=== PATIENT | male | born 1995 | race Caucasian/White ===

== ENCOUNTER 2017-05-31 23:18 | Emergency (ER) | payer BC ==
[2017-05-31] MEDS ORDERED: Haloperidol INJ IV/IM* 5 MG/ML AMP IM ONE (23:29)
[2017-05-31] MEDS ORDERED: diPHENhydraMINE IV* 50 MG/ML 1 ml VIAL (BENADRYL) IM ONE (23:29)
[2017-05-31] MEDS ORDERED: LORazepam INJ* 2 MG/ML 1 ML VIAL IM ONE (23:29)
[2017-05-31] MEDS ORDERED: diPHENhydraMINE IV* 50 MG/ML 1 ml VIAL (BENADRYL) ONE (23:35)
[2017-05-31] MEDS ORDERED: LORazepam INJ* 2 MG/ML 1 ML VIAL ONE (23:35)
[2017-05-31] MEDS ORDERED: Haloperidol INJ IV/IM* 5 MG/ML AMP ONE (23:35)
[2017-06-01 00:10] LABS: Hematocrit 46 % (42-52); Hemoglobin 15.4 g/dl (14.0-18.0); Mean Corpuscular HGB Conc 33 g/dl (31-36); Mean Corpuscular Hemoglobin 32 pg (27-31); Mean Corpuscular Volume 96 fL (80-94); Mean Platelet Volume 8.7 um3 (7.4-10.4); Platelet Count 333 10^3/ul (150-450); Red Cell Distribution Width 14 % (10.5-15); White Blood Count 13.8 10^3/ul (3.5-10.8)
[2017-06-01 00:27] LABS: EGFR Non-African American 78.7 (>60)
[2017-06-01 00:28] LABS: ABS Basophils 0.1 10^3/ul (0-0.2); ABS Eosinophils 0.2 10^3/ul (0-0.6); ABS Monocytes 1.2 10^3/ul (0-0.8); ABS Neutrophils 8.5 10^3/ul (1.5-7.7); ABS Nucleated RBC 0 10^3/ul; Eosinophil % 1.1 % (0-6); Lymphocyte % 28.6 % (25-47); Nucleated Red Blood Cells % 0.1
--- NOTE | 2017-06-01 07:05 | ED ---
Joseph Hess Tecjoon, scribed for Mauro Majano MD on 06/01/17 at 0351 . Substance Abuse/Use - HPI Summary HPI Summary: This patient is a 22 year old male brought to [facility] [place] with a chief complaint of alcohol intoxication. Patient is non-contributory and refuses to answer any questions. Patient was restrained and sedated. HPI Limited due to Level 5 Caveat - History Of Current Complaint Chief Complaint: EDSubstanceAbuse Stated Complaint: 2209/941 Time Seen by Provider: 05/31/17 23:27 Hx Obtained From: EMS Hx From Patient Unobtainable Due To: Other - non-contributory Ingestion History: Type/Name Of Drug - EtOH Overdose Characteristics: Oral Severity Currently: Moderate Character: Angry, Frustrated Aggravating Factor(s): Nothing Alleviating Factor(s): Nothing - Allergies/Home Medications Allergies/Adverse Reactions: Allergies Allergy/AdvReac Type Severity Reaction Status Date / Time No Known Allergies Allergy Verified 05/31/17 23:24 PMH/Surg Hx/FS Hx/Imm Hx Previously Healthy: No - PMHx Limited due to Level 5 Caveat Musculoskeletal History: Denies: Hx Rheumatoid Arthritis, Hx Osteoporosis Opthamlomology History: Denies: Hx Legally Blind EENT History: Denies: Hx Deafness Infectious Disease History: No Infectious Disease History: Denies: Traveled Outside the [place] in Last 30 Days - Family History Known Family History: Positive: Hypertension - Social History Alcohol Use: Occasionally Hx Substance Use: No Substance Use Type: Reports: None Substance Use Comment - Amount & Last Used: unknown Hx Tobacco Use: Yes Smoking Status (MU): Former Smoker Review of Systems Negative: Fever All Other Systems Reviewed And Are Negative: No - Comments Additional Review of Systems Comments: ROS Limited due to Level 5 Caveat: Patient non-compliance Physical Exam - Summary Physical Exam Summary: HEAD AND FACE: No signs of trauma. No ecchymosis, hematomas or skull depressions. No sinus tenderness. CHEST: Symmetric, no tenderness at palpation LUNGS: Clear to auscultation bilaterally. No wheezing or crackles. CVS: Regular rate and rhythm, S1 and S2 present, no murmurs or gallops appreciated. SKIN: Dry and warm Due to patient agitation and non-compliance, patient was sedated. PE Limited due to Level 5 Caveat Triage Information Reviewed: Yes Vital Signs On Initial Exam: Initial Vitals Temp Pulse Resp BP Pulse Ox 97.7 F 95 18 153/111 96 05/31/17 23:23 05/31/17 23:23 05/31/17 23:23 05/31/17 23:23 05/31/17 23:23 Vital Signs Reviewed: Yes Completion Of Physical Exam Limited Due To: Level 5, Other - non-compliance Diagnostics - Vital Signs Vital Signs Temp Pulse Resp BP Pulse Ox 06/01/17 02:00 65 19 101/61 96 06/01/17 01:30 62 19 106/58 96 06/01/17 01:00 66 20 103/53 96 06/01/17 00:30 70 22 111/59 90 06/01/17 00:21 64 21 92 06/01/17 00:20 110/63 05/31/17 23:23 97.7 F 95 18 153/111 96 - Laboratory Lab Results: Lab Results 05/31/17 05/31/17 Range/Units 23:56 23:56 WBC 13.8 H (3.5-10.8) 10^3/ul RBC 4.80 (4.0-5.4) 10^6/ul Hgb 15.4 (14.0-18.0) g/dl Hct 46 (42-52) % MCV 96 H (80-94) fL MCH 32 H (27-31) pg MCHC 33 (31-36) g/dl RDW 14 (10.5-15) % Plt Count 333 (150-450) 10^3/ul MPV 8.7 (7.4-10.4) um3 Neut % (Auto) 60.8 (38-83) % Lymph % (Auto) 28.6 (25-47) % [place] % (Auto) 8.5 H (0-7) % Eos % (Auto) 1.1 (0-6) % Baso % (Auto) 1.0 (0-2) % Absolute Neuts (auto) 8.5 H (1.5-7.7) 10^3/ul Absolute Lymphs (auto) 4.0 (1.0-4.8) 10^3/ul Absolute Monos (auto) 1.2 H (0-0.8) 10^3/ul Absolute Eos (auto) 0.2 (0-0.6) 10^3/ul Absolute Basos (auto) 0.1 (0-0.2) 10^3/ul Absolute Nucleated RBC 0 10^3/ul Nucleated RBC % 0.1 Sodium 138 L (139-145) mmol/L Potassium 3.8 (3.5-5.0) mmol/L Chloride 106 (101-111) mmol/L Carbon Dioxide 18 L (22-32) mmol/L Anion Gap 14 H (2-11) mmol/L BUN 10 (6-24) mg/dL Creatinine 1.16 (0.67-1.17) mg/dL Est GFR ( Amer) 101.3 (>60) Est GFR (Non-Af Amer) 78.7 (>60) BUN/Creatinine Ratio 8.6 (8-20) Glucose 100 (70-100) mg/dL Calcium 8.9 (8.6-10.3) mg/dL Total Bilirubin 0.30 (0.2-1.0) mg/dL AST 96 H (13-39) U/L ALT 191 H (7-52) U/L Alkaline Phosphatase 84 (34-104) U/L Total Creatine Kinase 150 (10-223) U/L Total Protein 7.3 (6.4-8.9) g/dL Albumin 4.3 (3.2-5.2) g/dL Globulin 3.0 (2-4) g/dL Albumin/Globulin Ratio 1.4 (1-3) TSH 3.79 (0.34-5.60) mcIU/mL Salicylates < 2.50 (<30) mg/dL Acetaminophen < 15 mcg/mL Serum Alcohol 282 H (<10) mg/dL Result Diagrams: 05/31/17 23:56 05/31/17 23:56 Lab Statement: Any lab studies that have been ordered have been reviewed, and results considered in the medical decision making process. Course/Dx - Course Course Of Treatment: This patient is a 22 year old male brought to [facility] by police with a chief complaint of alcohol intoxication. Patient is non- contributory and refuses to answer any questions. Patient was restrained and sedated. Patient will be diagnosed with alcohol intoxication. Patient will be signed out at end of shift to Dr. Rosen, pending MHE. The patient is agreeable with this plan. - Diagnoses Provider Diagnoses: Alcohol intoxication Discharge - Sign-Out/Discharge Documenting (check all that apply): Sign-Out Patient Signing out patient TO: Jonathan Rosen - Discharge Plan Condition: Stable Discharge Disposition Comment: signed out to Dr. Rosen at end of shift. Referrals: Lg Galeano MD [Primary Care Provider] - The documentation as recorded by the Joseph elaine Tecjoon accurately reflects the service I personally performed and the decisions made by me, Mauro Majano MD.
[2017-06-01 12:01] LABS: Urine Appearance Cloudy; Urine Blood Negative (Negative); Urine Color Yellow; Urine Ketones Negative (Negative); Urine Protein Negative (Negative); Urine Specific Gravity 1.016 (1.010-1.030); Urine Urobilinogen Negative (Negative)
[2017-06-01 19:38] VITALS: BP 111/60
--- NOTE | 2017-06-01 20:36 | ED ---
Joseph Hess Tecjoon, scribed for Mauro Majano MD on 06/01/17 at 2030 . Progress - Consult/PCP Time Called: 10:56 Course/Dx - Course Course Of Treatment: This patient is a 22 year old male brought to [facility] by police with a chief complaint of alcohol intoxication. Patient was signed out from Dr. Rosen at end of shift, awaiting transfer to [place]. At 2028, EMS arrived and patient will be transferred to [place]. - Diagnoses Provider Diagnoses: Substance abuse Discharge - Sign-Out/Discharge Documenting (check all that apply): Receiving Sign-Out Receiving patient FROM: Jonathan Rosen - Discharge Plan Condition: Stable Disposition: ADMITTED TO OTHER HOSPITAL Discharge Disposition Comment: Transferred to [facility] Referrals: Lg Galeano MD [Primary Care Provider] - The documentation as recorded by the Joseph elaine Tecjoon accurately reflects the service I personally performed and the decisions made by Gretel mccoy Abdul, MD.
--- NOTE | 2017-06-03 12:58 | ED ---
I, Katelyn Villanueva, scribed for Jonathan Rosen MD on 06/01/17 at 1006 . Progress - EKG/XRAY/CT EKG: NSR - At 13:12, 70 BPM, no ST elevation, J point elevation, nml axis Re-Evaluation - Re-Evaluation First Eval Re-Evaluation Time: 10:05 Change: Unchanged - Alert and oriented x3. Pending MHE. Course/Dx - Course Course Of Treatment: The pt is a sign out from Dr. Majano at shift change pending MHE. The pt is alert and oriented x3. He is sober and his MHE is complete. ED physician wants to admit the pt however since there is no room in the [facility] psych unit, the pt will be transferred to [place]. Dr. Tompkins from [facility] accepts the patient for admission. - Diagnoses Provider Diagnoses: Alcohol intoxication Discharge - Sign-Out/Discharge Documenting (check all that apply): Discharge, Sign-Out Patient Signing out patient TO: Mauro Majano - Transfer to [place]. - Discharge Plan Condition: Stable Disposition: PSYCHIATRIC FACILITY-OTHER Referrals: Lg Galeano MD [Primary Care Provider] - The documentation as recorded by the Rich elaine Stephanie accurately reflects the service I personally performed and the decisions made by , Jonathan Rosen MD.
== END 2017-06-01 20:37 | disposition short-term general hospital (02) ==
LOC: ED 23:18
DX: F10.129 Alcohol abuse with intoxication, unspecified (principal); Y90.8 Blood alcohol level of 240 mg/100 ml or more
CPT/HCPCS: 36415; 80053; 80307; 80320; 80329; 81003; 82550; 84443; 85025; 93005; 96372; 99285; G0480; J1200; J1630; J2060

== ENCOUNTER 2017-06-30 11:43 | Emergency (ER) | payer BC ==
[~2017-06-30 11:43] MED LIST: Haloperidol INJ IV/IM* 5 MG/ML AMP ONE; LORazepam INJ* 2 MG/ML 1 ML VIAL ONE; diPHENhydraMINE IV* 50 MG/ML 1 ml VIAL (BENADRYL) ONE
[2017-06-30 12:08] LABS: ABS Basophils 0.1 10^3/ul (0-0.2); ABS Eosinophils 0 10^3/ul (0-0.6); ABS Lymphocytes 1.5 10^3/ul (1.0-4.8); ABS Monocytes 0.6 10^3/ul (0-0.8); ABS Neutrophils 5.1 10^3/ul (1.5-7.7); ABS Nucleated RBC 0 10^3/ul; Eosinophil % 0.5 % (0-6); Hematocrit 41 % (42-52); Mean Corpuscular HGB Conc 34 g/dl (31-36); Mean Corpuscular Hemoglobin 32 pg (27-31); Mean Corpuscular Volume 94 fL (80-94); Nucleated Red Blood Cells % 0; Platelet Count 236 10^3/ul (150-450); Red Blood Count 4.36 10^6/ul (4.0-5.4); Red Cell Distribution Width 14 % (10.5-15); White Blood Count 7.4 10^3/ul (3.5-10.8)
[2017-06-30 12:23] LABS: EGFR Non-African American 119.2 (>60)
[2017-06-30 12:41] LABS: Urine Appearance Clear; Urine Blood Negative (Negative); Urine Color Straw; Urine Ketones Negative (Negative); Urine Protein Negative (Negative); Urine Specific Gravity 1.003 (1.010-1.030); Urine Urobilinogen Negative (Negative)
--- NOTE | 2017-06-30 21:24 | ED ---
Roscoe Hess Elizabeth, scribed for Constantin Guillory MD on 06/30/17 at 1210 . Psychiatric Complaint - HPI Summary HPI Summary: This patient is a 22 year old M presenting to [facility] via EMS accompanied by [place] [employer] with a chief complaint of alcohol intoxication and combativeness. Police report that they were called to the scene after the patient told someone he was going to jump off the parking garage. Upon arrival, the police report that the patient admitted to making that remark, said he was not going to do it , and then became combative. Patient is uncooperative and voluble. Patient was restrained and sedated. - History Of Current Complaint Chief Complaint: EDMentalHealth Time Seen by Provider: 06/30/17 11:45 Hx Obtained From: Other: - [place] [employer] Hx From Patient Unobtainable Due To: Other - uncooperative Onset/Duration: Still Present - still combative Severity Initially: Mild Severity Currently: Mild Character: Anxious, Angry Aggravating Factor(s): Alcohol Use Associated Signs And Symptoms: Positive: Hostile Has Suicidal: Denies: Thoughts, With A Plan - Allergies/Home Medications Allergies/Adverse Reactions: Allergies Allergy/AdvReac Type Severity Reaction Status Date / Time No Known Allergies Allergy Verified 06/30/17 12:13 Home Medications: Home Medications NK [No Home Medications Reported] 06/30/17 [History Confirmed 06/30/17] PMH/Surg Hx/FS Hx/Imm Hx Musculoskeletal History: Denies: Hx Rheumatoid Arthritis, Hx Osteoporosis Sensory History: Denies: Hx Legally Blind, Hx Deafness Opthamlomology History: Denies: Hx Legally Blind Psychiatric History: Reports: Hx of Violent Episodes Against Others Denies: Hx Eating Disorder Infectious Disease History: No Infectious Disease History: Denies: Traveled Outside the [place] in Last 30 Days - Family History Known Family History: Positive: Hypertension - Social History Alcohol Use: Occasionally Hx Substance Use: No Substance Use Type: Reports: None Substance Use Comment - Amount & Last Used: unknown Hx Tobacco Use: Yes Smoking Status (MU): Former Smoker Review of Systems Negative: Epistaxis Negative: Shortness Of Breath, Cough Negative: Vomiting All Other Systems Reviewed And Are Negative: Yes Physical Exam - Summary Physical Exam Summary: Appearance: The patient is well-nourished in no acute distress and in no acute pain. Skin: The skin is warm and dry and skin color reflects adequate perfusion. HEENT: The head is normocephalic and atraumatic. The pupils are equal and reactive. The conjunctivae are clear and without drainage. Nares are patent and without drainage. Mouth reveals moist mucous membranes and the throat is without erythema and exudate. The external ears are intact. The ear canals are patent and without drainage. The tympanic membranes are intact. Neck: the neck is supple with full range of motion and non-tender. There are no carotid bruits. There is no neck vein distension. Respiratory: Chest is non-tender. Lungs are clear to auscultation and breath sounds are symmetrical and equal. Cardiovascular: Heart is regular rate and rhythm. There is no murmur or rub auscultated. There is no peripheral edema and pulses are symmetrical and equal. Abdomen: The abdomen is soft and non-tender. There are normal bowel sounds heard in all four quadrants and there is no organomegaly palpated. Musculoskeletal: There is no back tenderness noted. Extremities are non-tender with full range of motion. There is good capillary refill. There is no peripheral edema or calf tenderness elicited. Neurological: Patient is alert and oriented to person, place and time. The patient has symmetrical motor strength in all four extremities. Cranial nerves are grossly intact. Deep tendon reflexes are symmetrical and equal in all four extremities. Psychiatric: The patient has an appropriate affect and does not exhibit any anxiety or depression. Triage Information Reviewed: Yes Vital Signs On Initial Exam: Initial Vitals Temp Pulse Resp BP Pulse Ox 99.3 F 121 24 168/98 98 06/30/17 11:50 06/30/17 11:50 06/30/17 11:50 06/30/17 11:50 06/30/17 11:50 Vital Signs Reviewed: Yes Diagnostics - Vital Signs Vital Signs Temp Pulse Resp BP Pulse Ox 06/30/17 11:50 99.3 F 121 24 168/98 98 - Laboratory Lab Results: Lab Results 06/30/17 06/30/17 06/30/17 Range/Units 11:58 11:58 12:31 WBC 7.4 (3.5-10.8) 10^3/ul RBC 4.36 (4.0-5.4) 10^6/ul Hgb 14.0 (14.0-18.0) g/dl Hct 41 L (42-52) % MCV 94 (80-94) fL MCH 32 H (27-31) pg MCHC 34 (31-36) g/dl RDW 14 (10.5-15) % Plt Count 236 (150-450) 10^3/ul MPV 8.0 (7.4-10.4) um3 Neut % (Auto) 69.8 (38-83) % Lymph % (Auto) 21.0 L (25-47) % [place] % (Auto) 7.9 H (0-7) % Eos % (Auto) 0.5 (0-6) % Baso % (Auto) 0.8 (0-2) % Absolute Neuts (auto) 5.1 (1.5-7.7) 10^3/ul Absolute Lymphs (auto) 1.5 (1.0-4.8) 10^3/ul Absolute Monos (auto) 0.6 (0-0.8) 10^3/ul Absolute Eos (auto) 0 (0-0.6) 10^3/ul Absolute Basos (auto) 0.1 (0-0.2) 10^3/ul Absolute Nucleated RBC 0 10^3/ul Nucleated RBC % 0 Sodium 137 L (139-145) mmol/L Potassium 3.5 (3.5-5.0) mmol/L Chloride 103 (101-111) mmol/L Carbon Dioxide 19 L (22-32) mmol/L Anion Gap 15 H (2-11) mmol/L BUN 9 (6-24) mg/dL Creatinine 0.81 (0.67-1.17) mg/dL Est GFR ( Amer) 153.2 (>60) Est GFR (Non-Af Amer) 119.2 (>60) BUN/Creatinine Ratio 11.1 (8-20) Glucose 98 (70-100) mg/dL Calcium 8.8 (8.6-10.3) mg/dL Total Bilirubin 0.30 (0.2-1.0) mg/dL AST 24 (13-39) U/L ALT 17 (7-52) U/L Alkaline Phosphatase 58 (34-104) U/L Total Protein 7.0 (6.4-8.9) g/dL Albumin 4.2 (3.2-5.2) g/dL Globulin 2.8 (2-4) g/dL Albumin/Globulin Ratio 1.5 (1-3) TSH 1.25 (0.34-5.60) mcIU/mL Urine Color Urine Appearance Urine pH (5-9) Ur Specific Conner (1.010-1.030) Urine Protein (Negative) Urine Ketones (Negative) Urine Blood (Negative) Urine Nitrate (Negative) Urine Bilirubin (Negative) Urine Urobilinogen (Negative) Ur Leukocyte Esterase (Negative) Urine Glucose (Negative) Salicylates < 2.50 (<30) mg/dL Urine Opiates Screen None detected (None Detect) Acetaminophen < 15 mcg/mL Ur Barbiturates Screen None detected (None Detect) Ur Phencyclidine Scrn None detected (None Detect) Ur Amphetamines Screen None detected (None Detect) U Benzodiazepines Scrn None detected (None Detect) Urine Cocaine Screen None detected (None Detect) U Cannabinoids Screen None detected (None Detect) Serum Alcohol 308 H (<10) mg/dL 06/30/17 Range/Units 12:32 WBC (3.5-10.8) 10^3/ul RBC (4.0-5.4) 10^6/ul Hgb (14.0-18.0) g/dl Hct (42-52) % MCV (80-94) fL MCH (27-31) pg MCHC (31-36) g/dl RDW (10.5-15) % Plt Count (150-450) 10^3/ul MPV (7.4-10.4) um3 Neut % (Auto) (38-83) % Lymph % (Auto) (25-47) % [place] % (Auto) (0-7) % Eos % (Auto) (0-6) % Baso % (Auto) (0-2) % Absolute Neuts (auto) (1.5-7.7) 10^3/ul Absolute Lymphs (auto) (1.0-4.8) 10^3/ul Absolute Monos (auto) (0-0.8) 10^3/ul Absolute Eos (auto) (0-0.6) 10^3/ul Absolute Basos (auto) (0-0.2) 10^3/ul Absolute Nucleated RBC 10^3/ul Nucleated RBC % Sodium (139-145) mmol/L Potassium (3.5-5.0) mmol/L Chloride (101-111) mmol/L Carbon Dioxide (22-32) mmol/L Anion Gap (2-11) mmol/L BUN (6-24) mg/dL Creatinine (0.67-1.17) mg/dL Est GFR ( Amer) (>60) Est GFR (Non-Af Amer) (>60) BUN/Creatinine Ratio (8-20) Glucose (70-100) mg/dL Calcium (8.6-10.3) mg/dL Total Bilirubin (0.2-1.0) mg/dL AST (13-39) U/L ALT (7-52) U/L Alkaline Phosphatase (34-104) U/L Total Protein (6.4-8.9) g/dL Albumin (3.2-5.2) g/dL Globulin (2-4) g/dL Albumin/Globulin Ratio (1-3) TSH (0.34-5.60) mcIU/mL Urine Color Straw Urine Appearance Clear Urine pH 5.0 (5-9) Ur Specific Conner 1.003 L (1.010-1.030) Urine Protein Negative (Negative) Urine Ketones Negative (Negative) Urine Blood Negative (Negative) Urine Nitrate Negative (Negative) Urine Bilirubin Negative (Negative) Urine Urobilinogen Negative (Negative) Ur Leukocyte Esterase Negative (Negative) Urine Glucose Negative (Negative) Salicylates (<30) mg/dL Urine Opiates Screen (None Detect) Acetaminophen mcg/mL Ur Barbiturates Screen (None Detect) Ur Phencyclidine Scrn (None Detect) Ur Amphetamines Screen (None Detect) U Benzodiazepines Scrn (None Detect) Urine Cocaine Screen (None Detect) U Cannabinoids Screen (None Detect) Serum Alcohol (<10) mg/dL Result Diagrams: 06/30/17 11:58 06/30/17 11:58 Lab Statement: Any lab studies that have been ordered have been reviewed, and results considered in the medical decision making process. Course/Dx - Course Course Of Treatment: Mr. Thibodeaux apparently told someone that he was going to jump off the parking garage and the police were notified. When they arrived, he was clearly quite intoxicated and uncooperative and he was wang against his will on a 941. On arrival, he was impossible to reason with and threatening in his behavior and words and was temporarily physically restrained and also chemically restrained. His BA was quite high and he has now sobered up and is awaiting a MHE. - Differential Dx/Clinical Impression Provider Diagnosis: Alcohol intoxication Discharge - Sign-Out/Discharge Documenting (check all that apply): Sign-Out Patient Signing out patient TO: Mauro Majano - Discharge Plan Condition: Stable Referrals: Lg Galeano MD [Primary Care Provider] - - Billing Disposition and Condition Condition: STABLE The documentation as recorded by the Roscoe elaine Elizabeth accurately reflects the service I personally performed and the decisions made by me, Constantin Guillory MD.
[2017-06-30] MEDS ORDERED: LORazepam TAB(*) 1 MG PO ONE (22:16)
--- NOTE | 2017-06-30 22:18 | ED ---
Hernando Hess Rebecca, scribed for Mauro Majano MD on 06/30/17 at 2216 . Progress - Progress Note Progress Note: Pt was signed out by Dr. Guillory, pending dispo, awaiting MHE. Course/Dx - Course Course Of Treatment: Pt was signed out by Dr. Guillory, pending dispo, awaiting MHE. Upon completion of MHE and consultation with Dr. Delgado, it has been determined that the pt will be admitted with Dx of unspecified depressive disorder with intentions to transfer him after admission. - Diagnoses Provider Diagnoses: Alcohol intoxication Discharge - Sign-Out/Discharge Documenting (check all that apply): Discharge/Admit/Transfer - Admit, Receiving Sign-Out Receiving patient FROM: Constantin Guillory - Discharge Plan Condition: Stable Dis[place] [place]errals: Lg Galeano MD [Primary Care Provider] - The documentation as recorded by the Hernando elaine Rebecca accurately reflects the service I personally performed and the decisions made by , Mauro Majano MD.
--- NOTE | 2017-07-01 07:23 | PN ---
ED Flex Patient Progress Note Date of Service: 07/01/17 Subjective: This is a 22 year-old M who is pending admission to [facility] versus transfer to another psychiatric facility secondary to depression/SI depending on what bed opens up first. Pt offers no complaints at this time is sleeping upon arrival, eating well and comfortable at this time. Objective: Vitals: Most recent vital signs documented below. General NAD, Alert and oriented x3. Heart: rrr at 80 bpm Lungs: CTA or with rales, rhonchi, wheezing Laboratory: Current laboratory results documented below. Assessment: depression alcohol intoxiciation pending admission Plan: Pending psychiatric transfer / admit. will follow up daily. Vital Signs Temp Pulse Resp BP Pulse Ox 99.3 F 73 16 117/64 97 06/30/17 11:50 06/30/17 16:35 06/30/17 22:25 06/30/17 16:35 06/30/17 16:35 Lab Results - Entire Visit 06/30/17 06/30/17 06/30/17 12:32 12:31 11:58 WBC RBC Hgb Hct MCV MCH MCHC RDW Plt Count MPV Neut % (Auto) Lymph % (Auto) Simpson % (Auto) Eos % (Auto) Baso % (Auto) Absolute Neuts (auto) Absolute Lymphs (auto) Absolute Monos (auto) Absolute Eos (auto) Absolute Basos (auto) Absolute Nucleated RBC Nucleated RBC % Sodium 137 L Potassium 3.5 Chloride 103 Carbon Dioxide 19 L Anion Gap 15 H BUN 9 Creatinine 0.81 Est GFR ( Amer) 153.2 Est GFR (Non-Af Amer) 119.2 BUN/Creatinine Ratio 11.1 Glucose 98 Calcium 8.8 Total Bilirubin 0.30 AST 24 ALT 17 Alkaline Phosphatase 58 Total Protein 7.0 Albumin 4.2 Globulin 2.8 Albumin/Globulin Ratio 1.5 TSH 1.25 Urine Color Straw Urine Appearance Clear Urine pH 5.0 Ur Specific [place] 1.003 L Urine Protein Negative Urine Ketones Negative Urine Blood Negative Urine Nitrate Negative Urine Bilirubin Negative Urine Urobilinogen Negative Ur Leukocyte Esterase Negative Urine Glucose Negative Salicylates < 2.50 Urine Opiates Screen None detected Acetaminophen < 15 Ur Barbiturates Screen None detected Ur Phencyclidine Scrn None detected Ur Amphetamines Screen None detected U Benzodiazepines Scrn None detected Urine Cocaine Screen None detected U Cannabinoids Screen None detected Serum Alcohol 308 H 06/30/17 11:58 WBC 7.4 RBC 4.36 Hgb 14.0 Hct 41 L MCV 94 MCH 32 H MCHC 34 RDW 14 Plt Count 236 MPV 8.0 Neut % (Auto) 69.8 Lymph % (Auto) 21.0 L [place] % (Auto) 7.9 H Eos % (Auto) 0.5 Baso % (Auto) 0.8 Absolute Neuts (auto) 5.1 Absolute Lymphs (auto) 1.5 Absolute Monos (auto) 0.6 Absolute Eos (auto) 0 Absolute Basos (auto) 0.1 Absolute Nucleated RBC 0 Nucleated RBC % 0 Sodium Potassium Chloride Carbon Dioxide Anion Gap BUN Creatinine Est GFR ( Amer) Est GFR (Non-Af Amer) BUN/Creatinine Ratio Glucose Calcium Total Bilirubin AST ALT Alkaline Phosphatase Total Protein Albumin Globulin Albumin/Globulin Ratio TSH Urine Color Urine Appearance Urine pH Ur Specific [place] Urine Protein Urine Ketones Urine Blood Urine Nitrate Urine Bilirubin Urine Urobilinogen Ur Leukocyte Esterase Urine Glucose Salicylates Urine Opiates Screen Acetaminophen Ur Barbiturates Screen Ur Phencyclidine Scrn Ur Amphetamines Screen U Benzodiazepines Scrn Urine Cocaine Screen U Cannabinoids Screen Serum Alcohol
[2017-07-01 14:46] VITALS: BP 98/58
--- NOTE | 2017-07-02 00:07 | ED ---
Jamal Hess Natalie, scribed for Canidce Nicholson MD on 07/01/17 at 2015 . Progress - Progress Note Progress Note: Pt was signed out by Dr. Guillory, pending dispo, awaiting MHE. The pt left before able to be re-examined at shift change. - Consult/PCP Time Called: 20:05 Course/Dx - Course Course Of Treatment: Pt was signed out by Dr. Guillory, pending dispo, awaiting MHE. Upon completion of MHE and consultation with Dr. Delgado, it has been determined that the pt will be admitted with Dx of unspecified depressive disorder with intentions to transfer him after admission. - Diagnoses Provider Diagnoses: Alcohol intoxication Discharge - Discharge Plan Condition: Stable Disposition: PSYCHIATRIC FACILITY[place] Patient Education Materials: Alcohol Use Disorder (ED) Forms: *Work Release Referrals: [facility] PHYSICIAN REFERRAL [Outside] - As Soon As Possible - Billing Disposition and Condition Condition: STABLE Disposition: [facility] The documentation as recorded by the Jamal elaine Natalie accurately reflects the service I personally performed and the decisions made by , Candice Nicholson MD.
== END 2017-07-01 14:42 ==
LOC: ED 11:43
DX: F10.129 Alcohol abuse with intoxication, unspecified (principal); Y90.8 Blood alcohol level of 240 mg/100 ml or more; Z87.891 Personal history of nicotine dependence
CPT/HCPCS: 36415; 80053; 80307; 80320; 80329; 81003; 84443; 85025; 93005; 96374; 96375; 99285; A9270-GY; G0480; J1200; J1630; J2060

== ENCOUNTER 2017-09-27 22:47 | Emergency (ER) | payer BC ==
[2017-09-27] MEDS ORDERED: LORazepam INJ* 2 MG/ML 1 ML VIAL ONE (22:55)
[2017-09-27] MEDS ORDERED: Haloperidol INJ IV/IM* 5 MG/ML AMP ONE (22:55)
[2017-09-27] MEDS ORDERED: diPHENhydraMINE IV* 50 MG/ML 1 ml VIAL (BENADRYL) ONE (22:55)
[2017-09-27] MEDS ORDERED: NS 0.9% 1000 ML* 2,000 ML IV ONE (23:16)
[2017-09-27] MEDS ORDERED: Tetan/Diph/Pertus SYR(Tdap)* 0.5 ML SYR(BOOSTRIX) use SYR IM ONE (23:19)
[2017-09-27] MEDS ORDERED: Ketorolac INJ* 60 MG/2 ML VIAL IM ONE (23:42)
[2017-09-27] MEDS ORDERED: KETAMINE HCL* 50 MG/ML 10 ML VIAL IM ONE (23:46)
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
[2017-09-28 00:35] LABS: ABS Basophils 0.1 10^3/ul (0-0.2); ABS Eosinophils 0 10^3/ul (0-0.6); ABS Lymphocytes 1.9 10^3/ul (1.0-4.8); ABS Monocytes 0.8 10^3/ul (0-0.8); ABS Neutrophils 5.4 10^3/ul (1.5-7.7); ABS Nucleated RBC 0 10^3/ul; Eosinophil % 0.3 % (0-6); Hematocrit 46 % (42-52); Hemoglobin 15.7 g/dl (14.0-18.0); Lymphocyte % 23.6 % (25-47); Mean Corpuscular HGB Conc 34 g/dl (31-36); Mean Corpuscular Hemoglobin 32 pg (27-31); Mean Corpuscular Volume 93 fL (80-94); Nucleated Red Blood Cells % 0.1; Platelet Count 229 10^3/ul (150-450); Red Blood Count 4.89 10^6/ul (4.00-5.40); Red Cell Distribution Width 14 % (10.5-15); White Blood Count 8.2 10^3/ul (3.5-10.8)
[2017-09-28 00:51] LABS: EGFR Non-African American 92.4 (>60)
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
--- NOTE | 2017-09-28 09:57 | RAD ---
Indication: Indication: Head injury. CT of the brain performed without IV contrast. Ventricular structures are midline. No midline shift is noted. The extra-axial spaces are unremarkable. There is no evidence of intracranial mass or hemorrhage. No other high or low density lesions are identified. Mastoid air cells and paranasal sinuses are otherwise unremarkable. IMPRESSION: There is no evidence of intracranial mass or hemorrhage noted.
--- NOTE | 2017-09-28 10:07 | RAD ---
Indication: Facial injury. CT of the facial bones was obtained in the axial plane. Sagittal and coronal reconstructed images were obtained. The mandible demonstrates no fracture. Zygoma and zygomatic arch is intact. The orbits are intact. Mucosal thickening of the ethmoid air cells is noted. The frontal sinuses are clear. Sphenoid sinuses are clear. No fracture is identified. The maxilla and pterygoid plates are intact. Nasal arch and nasal spine are unremarkable. Mastoid air cells are unremarkable. Soft tissue swelling is noted over the right orbit. IMPRESSION: No fracture of the facial bones is identified. Soft tissue swelling over the right orbit.
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
[2017-09-28 16:43] VITALS: BP 118/65
== END 2017-09-28 16:45 | disposition home or self-care (01) ==
LOC: ED 22:47
DX: F10.129 Alcohol abuse with intoxication, unspecified (principal); S00.10XA Contusion of unspecified eyelid and periocular area, initial encounter; S09.90XA Unspecified injury of head, initial encounter; F39 Unspecified mood [affective] disorder; X58.XXXA Exposure to other specified factors, initial encounter; Y92.9 Unspecified place or not applicable
CPT/HCPCS: 36415; 70450; 70486; 72125; 80053; 80320; 80329; 82550; 84443; 85025; 90715; 99285; G0480; J1200; J1630; J2060

== ENCOUNTER 2018-12-24 19:09 | Emergency (ER) | payer SELFPAY ==
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
[2018-12-24 19:51] LABS: ABS Basophils 0.1 10^3/ul (0-0.2); ABS Eosinophils 0.1 10^3/ul (0-0.6); ABS Lymphocytes 1.9 10^3/ul (1.0-4.8); ABS Monocytes 0.8 10^3/ul (0-0.8); ABS Neutrophils 5.5 10^3/ul (1.5-7.7); Hematocrit 48 % (42-52); Hemoglobin 16.5 g/dL (14.0-18.0); Lymphocyte % 22.9 %; Mean Corpuscular HGB Conc 35 g/dL (31-36); Mean Corpuscular Hemoglobin 32 pg (27-31); Mean Corpuscular Volume 93 fL (80-94); Mean Platelet Volume 8.2 fL (7.4-10.4); Nucleated Red Blood Cells % 0.1; Platelet Count 295 10^3/uL (150-450); Red Blood Count 5.14 10^6 /uL (4.18-5.48); Red Cell Distribution Width 15 % (10-15); White Blood Count 8.4 10^3/uL (3.5-10.8)
[2018-12-24 20:30] LABS: BUN/Creatinine Ratio 7.8 (8-20); Calcium 9.1 mg/dL (8.6-10.3); EGFR African American 109.5 (>60); EGFR Non-African American 90.5 (>60); Magnesium 2.2 mg/dL (1.9-2.7); Potassium 3.9 mmol/L (3.5-5.0)
[2018-12-24] MEDS ORDERED: Diazepam TAB(*) 5 MG PO ONE (21:19)
[2018-12-24] MEDS ORDERED: Midazolam* 1 MG/ML 2 ML VIAL (2 MG) IM ONE (21:25)
[2018-12-24] MEDS ORDERED: Midazolam concentrated* 5 MG/ML 1 ml VIAL ONE (21:27)
[2018-12-24] MEDS ORDERED: LORazepam INJ* 2 MG/ML 1 ML VIAL IM ONE (23:30)
[2018-12-24] MEDS ORDERED: Lorazepam PYXIS KEY PRN (23:30)
[2018-12-24] MEDS ORDERED: Lorazepam PYXIS KEY ONE (23:34)
[2018-12-25 06:30] VITALS: BP 131/77
== END 2018-12-25 06:40 | disposition home or self-care (01) ==
LOC: ED 19:09
DX: F10.929 Alcohol use, unspecified with intoxication, unspecified (principal); F43.20 Adjustment disorder, unspecified; R45.4 Irritability and anger; Z87.891 Personal history of nicotine dependence
CPT/HCPCS: 36415; 70450; 70486; 72125; 80048; 80320; 83735; 85025; 96372; 99285; G0480; J2060